=== PATIENT | female | born 1955 | race Asian ===

== ENCOUNTER → 2020-08-21 12:38 | Outpatient (CLI) | payer OTHER, SELFPAY ==
--- NOTE | 2020-08-21 | DI.MRI.S_ITS ---
PROCEDURE: MR ANKLE LT WO/W CON INDICATIONS: ganglion left ankle and foot TECHNIQUE: Noncontrast sagittal T1 spin echo and T2 fast spin echo with fat saturation, axial proton density fast spin echo and T2 fast spin echo with fat saturation, axial T1 spin echo with fat saturation, coronal T1 spin echo and T2 fast spin echo with fat saturation through the ankle/hindfoot. Post-contrast axial, coronal, and sagittal T1 spin echo with fat saturation through the ankle/hindfoot. COMPARISON: None. FINDINGS: Image quality: Excellent. Bones and joints: No suspicious osseous enhancement. No bone marrow contusions or fractures. No hindfoot coalitions. No osteochondral injuries of the talar dome. No pathologic joint effusions. Medial structures: The posterior tibialis, flexor digitorum longus, and flexor hallucis longus tendons are intact. The posterior tibial neurovascular bundle appears normal within the tarsal tunnel, without extrinsic mass effect. The deep layer (anterior and posterior tibiotalar ligaments) and superficial layer (tibionavicular, tibiospring, and tibiocalcaneal ligaments) of the deltoid ligament appear normal. The spring ligament components (superomedial calcaneonavicular, medioplantar oblique calcaneonavicular, and inferoplantar longitudinal ligaments) are intact. Lateral structures: The anterior talofibular, calcaneofibular, and posterior talofibular ligaments appear intact. More superiorly, the anterior and posterior tibiofibular ligaments appear intact, as is the intermalleolar ligament. The tibiofibular syndesmosis is normal in width at 2 mm or less. The peroneus longus and brevis tendons demonstrate normal location and morphology. Adjacent bony peroneal tubercle and retrotrochlear prominence are normal in size. The sinus tarsi demonstrates normal fatty signal, without edema, fibrosis, or cyst formation. Visualized sinus tarsi components (cervical ligament, interosseous talocalcaneal ligament, roots of the inferior extensor retinaculum) appear normal. There is an unenhancing, 15 mm high T2 intensity focus at the lateral aspect of the proximal 5th metatarsal, consistent with a ganglion cyst. Anterior structures: The tibialis anterior, extensor hallucis longus, and extensor digitorum longus tendons appear intact. The dorsal talonavicular ligament appears intact. Posterior and plantar structures: Achilles tendon is intact. There is mild T2 signal elevation within the medial bundle of the plantar fascia, just anterior to the calcaneal insertion site. No abductor digiti quinti muscle atrophy to suggest Do neuropathy. IMPRESSION: 1. Ganglion cyst adjacent to the proximal 5th metatarsal. 2. Mild medial bundle plantar fasciitis. Dictated by: Maddy Verduzco M.D. on 08/21/2020 at 14:43 Approved by: Maddy Verduzco M.D. on 08/21/2020 at 14:46
== END ==
PROVIDERS: Family Provider Internal Medicine; PCP Internal Medicine; Referring Provider Podiatrist; Visit Provider Podiatrist
DX: M67.472 Ganglion, left ankle and foot (principal); M72.2 Plantar fascial fibromatosis
CPT/HCPCS: 73723

== ENCOUNTER → 2020-09-29 13:37 | Outpatient (CLI) | payer OTHER, SELFPAY | PROVIDERS: Family Provider Internal Medicine; PCP Internal Medicine Geriatric Medicine; Referring Provider Podiatrist; Visit Provider Podiatrist | DX: Z01.818 Encounter for other preprocedural examination (principal) | CPT/HCPCS: 93005 ==

== ENCOUNTER 2022-03-08 19:14 | Emergency (ER) | payer OTHER, MEDICARE, SELFPAY ==
[2022-03-08] VITALS (7 sets, daily range): BP systolic 177–225; BP diastolic 79–95; PULSE 59–70; RESP 18; TEMP 36.4; O2SAT 96–99; BMI 23.1
[2022-03-08] MEDS: ACETAMINOPHEN 325 MG TABLET 650 MG PO (19:47)
--- NOTE | 2022-03-08 21:45 | DI.CT.S_ITS ---
PROCEDURE: CT FACIAL BONES WO CON INDICATIONS: fall, laceration over right eyebrow TECHNIQUE: Noncontrast 2.5 mm thick axial images acquired from the mandible through the frontal sinuses, with coronal and sagittal reformatting. For radiation dose reduction, the following was used: automated exposure control, adjustment of mA and/or kV according to patient size. COMPARISON: [facility], CT, CT HEAD/BRAIN WO CON, 03/08/2022, 21:56. FINDINGS: Image quality: There is metallic streak artifact from patient's dental hardware limiting evaluation. Bones and teeth: Orbital zamora are intact. Sinus zamora show no fracture or deformity. Nasal bones and septum are intact. Visualized portions of the mandible demonstrate no fractures or subluxation. Zygomatic arches are intact. Pterygoid plates are intact. Visualized portions of the skull base and auditory canals are intact. Sinuses: Paranasal sinuses are aerated, without fluid levels, mucosal thickening, or mucoceles. Mastoid air cells are aerated. Soft tissues: There is mild right supraorbital soft tissue swelling with a small associated soft tissue laceration. The globes are intact. No intraorbital fluid collections. Vascular: Visualized vascular structures appear normal in the absence of contrast. Bony vascular foramina and canals are intact. IMPRESSION: 1. No facial bone fractures identified. 2. Mild right supraorbital soft tissue swelling with a small soft tissue laceration. 3. Globes appear intact. No intraorbital fluid collections. Dictated by: Johnnie Mckoy M.D. on 03/08/2022 at 22:35 Approved by: Johnnie Mckoy M.D. on 03/08/2022 at 22:38
--- NOTE | 2022-03-08 21:45 | DI.CT.S_ITS ---
PROCEDURE: CT HEAD/BRAIN WO CON INDICATIONS: fall, laceration over right eyebrow TECHNIQUE: Noncontrast 4.5 mm thick angled axial sections acquired from the foramen magnum to the vertex, with coronal and sagittal reformats. For radiation dose reduction, the following was used: automated exposure control, adjustment of mA and/or kV according to patient size. COMPARISON: None. FINDINGS: Image quality: Excellent. CSF spaces: Basal cisterns are patent. No extra-axial fluid collections. Ventricles are normal in size and shape. Brain: No intracranial hemorrhage, mass, or mass effect. Franco-white matter interface appears preserved. Skull and face: There is a small right supraorbital soft tissue laceration. Calvarium and visualized facial bones are intact, without suspicious lesions. The globes appear intact. Sinuses: Visualized sinuses and mastoids are clear. IMPRESSION: 1. No acute intracranial abnormality. Dictated by: Johnnie Mckoy M.D. on 03/08/2022 at 22:34 Approved by: Johnnie Mckoy M.D. on 03/08/2022 at 22:35
--- NOTE | 2022-03-08 21:45 | DI.CT.S_ITS ---
PROCEDURE: CT CERVICAL SPINE WO CON INDICATIONS: fall, laceration over right eyebrow TECHNIQUE: Noncontrast 3 mm thick sections acquired from the skull base to the T4 level. Sagittal and coronal reformats were then constructed. For radiation dose reduction, the following was used: automated exposure control, adjustment of mA and/or kV according to patient size. COMPARISON: None. FINDINGS: Image quality: Excellent. Bones: No fractures or subluxation. There is straightening of the cervical lordosis. There is mild calcification along the posterior longitudinal ligament within the lower cervical spine. Multilevel degenerative disc disease and facet joint arthropathy are present. Visualized superior ribs are intact. Soft tissues: Prevertebral soft tissues are normal in thickness. No paravertebral hematomas. No apical pneumothoraces. Left thyroid lobe is absent. IMPRESSION: 1. No acute fracture or subluxation. 2. Multilevel degenerative changes in the cervical spine as well as ossification of the posterior longitudinal ligament as described. Dictated by: Johnnie Mckoy M.D. on 03/08/2022 at 22:38 Approved by: Johnnie Mckoy M.D. on 03/08/2022 at 22:40
[2022-03-08] MEDS: LOSARTAN 50 MG TABLET PO (22:12)
[2022-03-09] VITALS (8 sets, daily range): BP systolic 168–221; BP diastolic 74–93; PULSE 60–72; O2SAT 94–98
--- NOTE | 2022-03-09 02:25 | ED.HEATRA ---
HPI - Head Injury General Chief complaint: Head Injury Stated complaint: Fell hit head, No thinners Time Seen by Provider: 03/08/22 22:11 Source: patient and family Mode of arrival: Ambulatory History of Present Illness HPI Narrative: 66-year-old woman with a history of hypertension, seasonal allergies, chronic back pain was trying to prevent her dog from running outside. The dog did have a leash on an as he was running out she stepped on the leash but the dog was stronger than she was pulled the leash out from under her foot causing her to fall forward and hit the edge of a stare with the right edge of her eye/brow area. There was no loss of consciousness. So was purely mechanical with no syncopal component to the episode. She complains of pain in and around the eye where the lacerations are and complains of no significant exacerbation in her chronic neck pain. She is not recently had infections, she is not been short of breath, denies chest pain, palpitations, nausea, vomiting, diarrhea. She describes no other musculoskeletal complaints. Related Data Allergies Allergy/AdvReac Type Severity Reaction Status Date / Time cefazolin [From [facility]] Allergy Verified 03/08/22 22:11 Review of Systems Review of Systems Narrative: Remainder of complete review of systems is otherwise unremarkable except for that included in the HPI. Patient History Medical History (Updated 03/09/22 @ 03:13 by Jeaneth Gamboa MD) Chronic neck pain Hypertension Social History Smoking Status: Never smoker Smoking Status: Never smoker Substance Use Type: does not use Exam Initial Vital Signs Initial Vital Signs: Vital Signs Temperature 97.5 F L 03/08/22 19:27 Pulse Rate 70 03/08/22 19:27 Respiratory Rate 18 03/08/22 19:27 Blood Pressure 215/95 H 03/08/22 19:27 Pulse Oximetry 98 03/08/22 19:27 Oxygen Delivery Method 03/08/22 19:27 General: Healthy appearing, in mild distress secondary pain. Able to give a complete and coherent history. Well-nourished well-developed HEENT: Moist mucous membranes, normal sclera with reactive pupils, bruising around the right cheek, she has skin tear like laceration to the edge of the right eye and a 1 cm deeper laceration above the brow Neck: No JVD, moderate tenderness along the paraspinous muscles that she describes as at her baseline and no worse. Respiratory: Lungs are clear to auscultation, no wheezing no rales no rhonchi. Full and symmetrical air movement Cardiac: Regular rate and rhythm no murmurs no bruits Abdomen: Soft, nontender, good bowel tones, no flank pain Neurologic: Grossly neurologically intact with no obvious asymmetries or abnormalities Extremities: No trauma, well perfused Psych: Cooperative, appropriate insight and affect Procedures Laceration Repair 1 cm laceration above left brow: Time of procedure: 03:06 Site: face Side (If applicable): right (Header above indicates left, the injury is over the right brow) Size (cm): 1 Description: linear Depth: simple, single layer Local Anesthetic: bupivacaine 0.5% and with epi Amount of anesthesia used (mL): 1 Pre-repair: wound explored and deep structures intact Technique: running (Subcuticular with Steri-Strips) Subcutaneous layer closed with: vicryl Laceration below right brow: Time of procedure: 03:08 Site: face Side (If applicable): right Size (cm): 4 Description: flap and irregular Depth: simple, single layer Local Anesthetic: bupivacaine 0.5% and with epi Amount of anesthesia used (mL): 3 Pre-repair: wound explored, deep structures intact and wound margins revised Skin layer closed with: nylon Skin layer suture size: 5-0 Number of sutures: 6 Technique: simple, interrupted Course Orders Ordered: ED Orders 03/08/22 21:45 CT cervical spine wo con Stat CT facial bones wo con Stat CT head/brain wo con Stat Discontinued Medications Acetaminophen (Acetaminophen 325 Mg Tablet) 650 mg PO NOW ONE Stop: 03/08/22 19:44 Last Admin: 03/08/22 19:47 Dose: 650 mg Documented By: ELVIS Losartan Potassium (Losartan 50 Mg Tablet) 50 mg PO NOW ONE Stop: 03/08/22 21:46 Last Admin: 03/08/22 22:12 Dose: 50 mg Documented By: AT Vital Signs Vital signs: Vital Signs - 8 hr 03/08/22 19:27 03/08/22 21:45 03/08/22 21:46 Temperature 97.5 F L Pulse Rate 70 68 Respiratory Rate 18 Blood Pressure 215/95 H Pulse Oximetry 98 99 99 Oxygen Delivery Method Room Air 03/08/22 21:46 03/08/22 22:04 03/08/22 22:30 Temperature Pulse Rate 62 Respiratory Rate Blood Pressure 225/91 H 177/79 H Pulse Oximetry 99 Oxygen Delivery Method 03/08/22 22:30 03/08/22 23:00 03/08/22 23:00 Temperature Pulse Rate 59 L 59 L Respiratory Rate Blood Pressure 189/84 H Pulse Oximetry 98 97 Oxygen Delivery Method MDM - Head Injury Imaging Data CT - cervical spine: Radiologist's Impression: FINDINGS:? Image quality:? Excellent.? ? Bones:? No fractures or subluxation.? There is straightening of the cervical lordosis.? There is mild calcification along the posterior longitudinal ligament within the lower cervical spine.? Multilevel degenerative disc disease and facet joint arthropathy are present.? Visualized superior ribs are intact.? ? Soft tissues:? Prevertebral soft tissues are normal in thickness.? No paravertebral hematomas.? No apical pneumothoraces.? Left thyroid lobe is absent.? ? IMPRESSION:? ? 1. No acute fracture or subluxation. ? 2. Multilevel degenerative changes in the cervical spine as well as ossification of the posterior longitudinal ligament as described. ? ? ? Dictated by: Johnnie Mckoy M.D. on 03/08/2022 at 22:38 ?? face CT: Radiologist's Impression: FINDINGS:? Image quality:? There is metallic streak artifact from patient's dental hardware limiting evaluation.? ? Bones and teeth:? Orbital zamora are intact.? Sinus zamora show no fracture or deformity.? Nasal bones and septum are intact.? Visualized portions of the mandible demonstrate no fractures or subluxation.? Zygomatic arches are intact.? Pterygoid plates are intact.? Visualized portions of the skull base and auditory canals are intact.? ? Sinuses:? Paranasal sinuses are aerated, without fluid levels, mucosal thickening, or mucoceles.? Mastoid air cells are aerated.? ? Soft tissues:? There is mild right supraorbital soft tissue swelling with a small associated soft tissue laceration.? The globes are intact.? No intraorbital fluid collections. ? Vascular:? Visualized vascular structures appear normal in the absence of contrast.? Bony vascular foramina and canals are intact.? ? IMPRESSION:? ? 1. No facial bone fractures identified. ? 2. Mild right supraorbital soft tissue swelling with a small soft tissue laceration. ? 3. Globes appear intact.? No intraorbital fluid collections.? ? ? Dictated by: Johnnie Mckoy M.D. on 03/08/2022 at 22:35 ? ? CT scan - head: Radiologist's Impression: FINDINGS:? Image quality:? Excellent.? ? CSF spaces:? Basal cisterns are patent.? No extra-axial fluid collections.? Ventricles are normal in size and shape.? ? Brain:? No intracranial hemorrhage, mass, or mass effect.? Franco-white matter interface appears preserved.? ? Skull and face:? There is a small right supraorbital soft tissue laceration.? Calvarium and visualized facial bones are intact, without suspicious lesions.? The globes appear intact.? ? Sinuses:? Visualized sinuses and mastoids are clear.? ? IMPRESSION:? ? 1. No acute intracranial abnormality. ? ? Dictated by: Johnnie Mckoy M.D. on 03/08/2022 at 22:34 ? ? MDM Narrative Medical decision making narrative: CC: Mechanical fall landing on the right side of her eye and brow: New problem uncertain prognosis with potential for life-threatening abnormality Complicating co-morbidities: Hypertension, chronic neck pain Corroborating data: Data collected from: patient, Differential considered: Syncopal episode causing the fall, significant facial, orbital, intracranial trauma, trauma to the neck and extremities Exam documented above, pertinent findings include: Laceration to the edge of the eye swelling over the malar prominence without obvious bony abnormality. Uncovered and nonpainful eye movement and no visual abnormalities. No actual injury to the globe itself Imaging studies independently reviewed: CT scan of the cervical spine head and face are all unremarkable with no significant bony trauma or intracranial bleeding Treatments: Laceration repair to area to the edge of the eye with minor revision and interrupted nylon sutures. Smaller area above the brow with running subcuticular and Steri-Strips Discussion: Discussed anticipated healing including anticipated pain. Sutures to be removed in a week. No additional injuries identified, questions are answered and patient is safe for discharge home Disposition: see below, along with detailed discharge instructions that have been reviewed with patient as well as indications for ED re-evaluation and additional outpatient follow up Discharge Plan Departure Patient Disposition: Home Clinical Impression: Fall Qualifiers: Encounter type: initial encounter Qualified Code(s): W19.XXXA - Unspecified fall, initial encounter Face lacerations Qualifiers: Encounter type: initial encounter Qualified Code(s): S01.81XA - Laceration without foreign body of other part of head, initial encounter Contusion of periorbital region, right Qualifiers: Encounter type: initial encounter Qualified Code(s): S05.11XA - Contusion of eyeball and orbital tissues, right eye, initial encounter Instructions: DI for Laceration Repair Activity Restrictions/Additional Instructions: Thank you for coming in today Fortunately, the CT scans of your cervical spine, face and brain are all unremarkable. There are no facial fractures and no bleeding into the brain. You did not do any additional damage to her neck. With the small laceration above her eyebrow, there is a dissolvable suture under the skin and Steri-Strips were placed. You can clip back the Steri-Strips as they peel off. With the larger laceration under your brow, there was a bit of revision that I did but the edges came together quite nicely. The sutures will need to come out on or about March 16. If you do notice any signs of infection would be very appropriate to return to the emergency department. Ice to the wound will help with swelling over all but do expect quite a bit of bruising. Using 400 mg of ibuprofen (2 [id number] pills) and 1 Tylenol every 6 hours can be very helpful in controlling pain. For severe pain you can add hydrocodone into that mix. If you find that you are getting worse or develop any new symptoms, please feel free to return to the emergency department for further evaluation. Referrals: Maritza Caldwell MD [Primary Care Provider] - Stand Alone Forms: Patient Portal/API
[2022-03-09] MEDS: HYDROCODONE/ACET 5/325 TABLET 1 TAB PO (03:16)
[2022-03-09] MEDS: HYDROCODONE/ACET 5/325 PREPACK 1 BOTTLE MISC (03:17)
== END 2022-03-09 03:27 | disposition home or self-care (01) ==
PROVIDERS: Emergency Provider Emergency Medicine; Family Provider Internal Medicine; PCP Internal Medicine Geriatric Medicine
DX: S01.81XA Laceration without foreign body of other part of head, initial encounter (principal); S05.11XA Contusion of eyeball and orbital tissues, right eye, initial encounter; W18.30XA Fall on same level, unspecified, initial encounter
CPT/HCPCS: 12013; 70450; 70486; 72125; 99284

== ENCOUNTER 2023-07-25 15:45 | Emergency (ER) | payer OTHER, MEDICARE, SELFPAY ==
[2023-07-25 16:20] VITALS: BP 212/85; PULSE 75; RESP 16; TEMP 36.8; O2SAT 100; BMI 22.4
--- NOTE | 2023-07-25 16:23 | DI.RAD.S_ITS ---
PROCEDURE: XR KNEE RT 3V INDICATIONS: fall, pain with ambulation TECHNIQUE: 3 views of the knee were acquired. COMPARISON: None. FINDINGS: Bones: There are prominent supra and infrapatellar enthesophytes. Query lucency at the infrapatellar enthesophyte. No suspicious bony lesions. Soft tissues: Small joint effusion. No suspicious soft tissue calcifications. IMPRESSION: No definite acute radiographic abnormality. Lucency at the inferior patella/infrapatellar enthesophyte may represent possible nondisplaced fracture. Recommend correlation with point tenderness. Approved by: Danielle Weston M.D.,Ph.D. on 07/25/2023 at 17:59
--- NOTE | 2023-07-25 19:36 | ED.FALL ---
HPI - Fall General Chief Complaint: Fall Stated Complaint: GLF, knee pain, no blood thinners Time Seen by Provider: 07/25/23 19:30 Source: patient Mode of arrival: Ambulatory History of Present Illness HPI Narrative: Patient is a 67-year-old female who is here for evaluation of a right knee injury. Patient states that she was pulled over by a dog earlier today landing on her right knee. She has been ambulatory. She did not hit her head. No loss of consciousness. She was not on blood thinners. Sustained an abrasion to the front of the knee. Has discomfort over the patella. No other injuries from the event. Related Data Previous Rx's Medication Instructions Recorded hydrocodone 5 mg-acetaminophen 325 1 tab PO Q4-6H PRN pain #10 tabs 07/25/23 mg tablet Allergies Allergy/AdvReac Type Severity Reaction Status Date / Time cefazolin [From [facility]] Allergy Verified 07/25/23 16:19 Review of Systems Musculoskeletal Musculoskeletal: Reports system reviewed and no additional complaints, except as documented Integumentary/Breasts Skin/Breast: Reports system reviewed and no additional complaints, except as documented Hematologic/Lymphatic On Anticoagulants: No Patient History Medical History Chronic neck pain Hypertension Social History Smoking Status: Never smoker Smoking Status: Never smoker Substance Use Type: does not use Exam Initial Vital Signs Initial Vital Signs: Vital Signs Temperature 98.2 F 07/25/23 16:20 Pulse Rate 75 07/25/23 16:20 Respiratory Rate 16 07/25/23 16:20 Blood Pressure 212/85 H 07/25/23 16:20 Pulse Oximetry 100 07/25/23 16:20 Oxygen Delivery Method Room Air 07/25/23 16:20 Const General: cooperative, comfortable and No ill appearing Skin Other: Superficial abrasion over the anterior portion of the knee. No active bleeding. Extrem Other: Patient does have tenderness to palpation throughout the knee cap. Patellar tendon and quadriceps tendon appear to be intact. She was able to do straight leg raise. He was able to put pressure on her leg. Procedures Orthopedic Splinting/Casting Injury #1: Side: right Lower Extremity Injury Location: knee Lower Extremity Immobilizer: knee immobilizer Post splinting neuro exam: intact Post splinting vascular exam: intact Placed by: Nursing Course Orders Ordered: Discontinued Medications Hydrocodone Bitart/Acetaminophen (Hydrocodone/Acet 5/325 Prepack) 1 bottle MISC DIRECTED ONE Stop: 07/25/23 19:37 Last Admin: 07/25/23 19:46 Dose: 1 bottle Documented By: KATHY Hydrocodone Bitart/Acetaminophen (Hydrocodone/Acet 10/325 Tablet) 1 tab PO NOW ONE Stop: 07/25/23 19:37 Last Admin: 07/25/23 19:46 Dose: 1 tab Documented By: KATHY Bacitracin (Bacitracin Oint 0.9 Gm Pckt) 1 applic TOP NOW ONE Stop: 07/25/23 19:37 Last Admin: 07/25/23 19:45 Dose: 1 applic Documented By: KATHY Vital Signs Vital signs: Vital Signs - 8 hr 07/25/23 19:58 Pulse Rate 72 Respiratory Rate 18 Blood Pressure 160/82 H Pulse Oximetry 100 Oxygen Delivery Method Room Air MDM - Fall Imaging Data Extremity x-ray #1: Radiologist's Impression: PROCEDURE: XR KNEE RT 3V INDICATIONS: fall, pain with ambulation TECHNIQUE: 3 views of the knee were acquired. COMPARISON: None. FINDINGS: Bones: There are prominent supra and infrapatellar enthesophytes. Query lucency at the infrapatellar enthesophyte. No suspicious bony lesions. Soft tissues: Small joint effusion. No suspicious soft tissue calcifications. IMPRESSION: No definite acute radiographic abnormality. Lucency at the inferior patella/infrapatellar enthesophyte may represent possible nondisplaced fracture. Recommend correlation with point tenderness. [facility] Narrative Medical decision making narrative: Patient has a superficial abrasion over her knee. X-ray does show some concern about a patellar fracture and she does have tenderness over this area. Because of this we will place her in a knee immobilizer. Her quadriceps tendon and patellar tendon appear to be intact. Will discharge patient home with instructions for follow-up with Orthopedic surgery. She was given return precautions. She expressed understanding and agreement. Discharge Plan Departure Patient Disposition: Home Clinical Impression: Patellar fracture, Abrasion of skin Instructions: DI for Patella Fracture, How To Perform RICE (Rest, Ice, Compress, Elevate), How to Use a Knee Immobilizer Activity Restrictions/Additional Instructions: The knee immobilizer should be worn when you are up and moving around but can be removed to shower and also when you are sleeping. I do recommend that you contact the orthopedic doctors in the number provided below for a follow-up. Return to the emergency department for new or worsening symptoms. Prescriptions: New hydrocodone-acetaminophen 5-325 mg tablet 1 tab PO Q4-6H PRN (Reason: pain) Qty: 10 0RF Referrals: Maritza Caldwell MD [Primary Care Provider] - Jaja Guerrero MD [Physician] - Stand Alone Forms: Patient Portal/API
[2023-07-25] MEDS: BACITRACIN OINT 0.9 GM PCKT 1 APPLIC TOP (19:45)
[2023-07-25] MEDS: HYDROCODONE/ACET 5/325 PREPACK 1 BOTTLE MISC (19:46)
[2023-07-25] MEDS: HYDROCODONE/ACET 10/325 TABLET 1 TAB PO (19:46)
[2023-07-25 19:58] VITALS: BP 160/82; PULSE 72; RESP 18; O2SAT 100
== END 2023-07-25 20:03 | disposition home or self-care (01) ==
PROVIDERS: Emergency Provider Emergency Medicine; Family Provider Internal Medicine; PCP Internal Medicine Geriatric Medicine
DX: S82.001A Unspecified fracture of right patella, initial encounter for closed fracture (principal); W18.30XA Fall on same level, unspecified, initial encounter
CPT/HCPCS: 73562; 99283